=== PATIENT | female | born 1930 | race Caucasian/White ===

== ENCOUNTER → 2016-11-25 | Outpatient (CLI) | payer MEDICARE ==
[~2016-11-25] MED LIST: AZO STANDARD97.5 MG PO; COUMADIN4 M2 PO; COUMADIN6 M2 PO; FUROSEMIDE20 M1 PO; LEXAPRO10 MG PO; VESICARE10 MG PO
[2016-11-25 16:57] LABS: INTERNATIONAL NORM RATIO 3.5 (2.0-3.5); PROTHROMBIN TIME 40.1 SECONDS (9.0-12.4)
== END | disposition home or self-care (01) ==
LOC: LAB 15:52
PROVIDERS: Internal Medicine
DX: I82.409 Acute embolism and thrombosis of unspecified deep veins of unspecified lower extremity (principal)

== ENCOUNTER → 2016-12-02 | Outpatient (CLI) | payer MEDICARE ==
[2016-12-02 17:00] LABS: INTERNATIONAL NORM RATIO 2.7 (2.0-3.5); PROTHROMBIN TIME 30.8 SECONDS (9.0-12.4)
== END | disposition home or self-care (01) ==
LOC: LAB 15:48
PROVIDERS: Internal Medicine
DX: I74.3 Embolism and thrombosis of arteries of the lower extremities (principal)

== ENCOUNTER → 2016-12-09 | Outpatient (CLI) | payer MEDICARE ==
[2016-12-09 16:49] LABS: INTERNATIONAL NORM RATIO 3.2 (2.0-3.5)
== END | disposition home or self-care (01) ==
LOC: LAB 16:13
PROVIDERS: Internal Medicine
DX: I74.3 Embolism and thrombosis of arteries of the lower extremities (principal)